=== PATIENT | female | born 1945 | race African-American/Black ===

== ENCOUNTER 2022-12-03 10:47 | Outpatient (CLI) | payer OTHER, MEDICAID | END 2022-12-03 10:48 | disposition home or self-care (01) | LOC: BICCT 10:47 | PROVIDERS: ATTEND Obstetrics & Gynecology | DX: Z12.2 Encounter for screening for malignant neoplasm of respiratory organs (principal); F17.210 Nicotine dependence, cigarettes, uncomplicated | CPT/HCPCS: 71271 ==

== ENCOUNTER 2023-11-22 18:56 | Inpatient (IN) | payer OTHER, MEDICAID ==
[~2023-11-22 18:56] MED LIST: Iopamidol-370 76% 500 ML MDV (1 ML CHARGE) ONE
[2023-11-22 20:17] LABS: #Monocytes 0.4 thou/uL (0.11-0.59); #Neutrophils 1.6 thou/uL (1.40-6.50); %Basophils 0.3 % (0.0-1.0); %Eosinophils 0.6 % (0.0-10.0); %Lymphocytes 39.3 % (21.0-51.0); %Monocytes 11.1 % (0.0-10.0); %Neutrophils 48.1 % (42.0-75.0); Hemoglobin 12.2 g/dL (12.0-16.0); Mean Corpuscular HGB CONC 32.1 g/dL (32.0-36.0); Mean Corpuscular Hemoglobin 30.6 pg (27.0-31.0); Mean Corpuscular Volume 95.2 fl (78.0-98.0); Mean Platelet Volume 10.9 fL (7.4-10.4); Platelet Count 179 10x3/uL (130-400); RBC Distribution Width 12.8 % (11.5-14.5); Red Blood Cell (RBC) Count 3.99 mill/uL (4.20-5.40); White Blood Cell (WBC) Count 3.3 10x3/uL (4.8-10.8)
[2023-11-22 20:43] LABS: Troponin I 0.026 ng/mL (< 0.028)
[2023-11-22 20:47] LABS: ALT (SGPT) 14 U/L (8-55); AST (SGOT) 24 U/L (5-34); Alkaline Phosphatase 59 U/L (40-110); Anion Gap 9 mmol/L (10-20); BUN (Urea Nitrogen) 11 mg/dL (9.8-20.1); Bilirubin, Total 0.3 mg/dL (0.2-1.2); Calc. Creatinine Clearance 0 mL/min (70-130); Calcium 8.8 mg/dL (7.8-10.44); Carbon Dioxide 26 mmol/L (23-31); Chloride 109 mmol/L (98-107); Estimated GFR 79; Globulin 5.2 g/dL (2.4-3.5); Glucose 94 mg/dL (83-110); Lipase 24 U/L (8-78); Potassium 4.1 mmol/L (3.5-5.1); Protein, Total 8.2 g/dL (5.8-8.1); Sodium 140 mmol/L (136-145)
[2023-11-22] MEDS ORDERED: Azithromycin 500 MG VIAL ONE (21:31)
[2023-11-22] MEDS ORDERED: cefTRIAXone (ROCEPHIN) 1 GM VIAL ONE (21:31)
[2023-11-22] MEDS ORDERED: Sodium Chloride 0.9% 100 ML ONE (21:32)
[2023-11-22 21:43] LABS: Bacteria/HPF None Seen HPF (None Seen); Bilirubin Negative (Negative); Blood, Urine Negative (Negative); CAUTI Indications for Culture Fever or rigors; Clarity Clear (Clear); Glucose, Urine (Dipstick) Normal (Negative); Ketone, Urine Negative (Negative); Leukocyte Negative Leu/uL (Negative); Nitrite Negative (Negative); Protein, Urine (Dipstick) 50 mg/dL (Neg-Trace); RBC/HPF 0-3 HPF (0-3); Specific Gravity, Urine 1.025 (1.002-1.036); Squamous Epithelial 0-3 HPF (0-3); WBC/HPF 0-3 HPF (0-3)
[2023-11-22 21:45] LABS: Urine Culture Reflex No No
[2023-11-22] MEDS ORDERED: Furosemide 20 MG (2 mL) VIAL ONE (21:59)
[2023-11-22 22:39] LABS: Actual Bicarbonate (HCO3v) 23.1 mEq/L (22-28); Base Excess -1.6 mEq/L (-2.0 to +3.0); Calcium, Ionized (venous) 1.04 mmol/L (1.16-1.32); Chloride (VBG) 110 mmol/L (98-106); Hematocrit-VBG 38 % (36.0-47.0); Potassium (VBG) 3.77 mmol/L (3.70-5.30); Sodium 141 mmol/L (133-146); pH (venous) 7.389 (7.32-7.43)
[2023-11-22 22:48] LABS: SARS-CoV-2 NAA Rapid Test Not Detected (NotDetected)
[2023-11-23] MEDS ORDERED: Senokot S 8.6-50 MG TAB PO PRN (01:05)
[2023-11-23] MEDS ORDERED: Nicotine 14 MG PATCH TD PRN (01:05)
[2023-11-23 02:10] LABS: Amphetamine Not Detected (NotDetected); Barbiturates Screen Not Detected (NotDetected); Benzodiazepine Screen Not Detected (NotDetected); Cocaine Metabolite Screen Detected (NotDetected); Methadone Not Detected (NotDetected); Methamphetamine Not Detected (NotDetected); Opiate Screen Not Detected (NotDetected); Oxycodone Screen Not Detected (NotDetected); Phencyclidine (PCP) Not Detected (NotDetected); THC/Cannabinoid Screen Not Detected (NotDetected); Tricyclic Screen Not Detected (NotDetected)
[2023-11-23 02:15] LABS: Legionella Urinary Ag Negative (Negative)
[2023-11-23] MEDS ORDERED: hydrALAZINE 20 MG/ML VIAL SLOW IVP PRN (02:20)
[2023-11-23 02:37] LABS: Strep pneumo Urine Ag NEGATIVE (NEGATIVE)
[2023-11-23 07:16] LABS: #Monocytes 0.4 thou/uL (0.11-0.59); %Basophils 0.5 % (0.0-1.0); %Lymphocytes 38.2 % (21.0-51.0); %Monocytes 9.5 % (0.0-10.0); Hematocrit 39.6 % (36.0-47.0); Hemoglobin 12.5 g/dL (12.0-16.0); Mean Corpuscular HGB CONC 31.6 g/dL (32.0-36.0); Mean Corpuscular Hemoglobin 30.3 pg (27.0-31.0); Mean Corpuscular Volume 96.1 fl (78.0-98.0); Mean Platelet Volume 11.4 fL (7.4-10.4); Platelet Count 188 10x3/uL (130-400); RBC Distribution Width 12.8 % (11.5-14.5); Red Blood Cell (RBC) Count 4.12 mill/uL (4.20-5.40)
[2023-11-23 07:39] LABS: ALT (SGPT) 17 U/L (8-55); AST (SGOT) 26 U/L (5-34); Alkaline Phosphatase 54 U/L (40-110); Anion Gap 11 mmol/L (10-20); BUN (Urea Nitrogen) 11 mg/dL (9.8-20.1); Bilirubin, Total 0.3 mg/dL (0.2-1.2); Calc. Creatinine Clearance 42 mL/min (70-130); Calcium 8.5 mg/dL (7.8-10.44); Carbon Dioxide 28 mmol/L (23-31); Chloride 106 mmol/L (98-107); Estimated GFR 79; Globulin 5.2 g/dL (2.4-3.5); Glucose 102 mg/dL (83-110); Potassium 3.9 mmol/L (3.5-5.1); Protein, Total 8.2 g/dL (5.8-8.1); Sodium 141 mmol/L (136-145)
[2023-11-23] MEDS: Ferrous Sulfate 325 MG TAB PO SCH (08:29)
[2023-11-23] MEDS: Enoxaparin 30 MG (0.3 mL) SYRINGE SC SCH ×2 (08:31→08:35)
[2023-11-23] MEDS: Pantoprazole 40 MG VIAL IVP SCH (08:31)
[2023-11-23] MEDS ORDERED: Amlodipine 5 MG TAB PO SCH (09:00)
[2023-11-23] MEDS ORDERED: Doxycycline 100 MG CAP PO SCH (09:45)
[2023-11-23] MEDS: Doxycycline 100 MG CAP PO SCH (20:30)
[2023-11-23] MEDS ORDERED: cefTRIAXone\\ROCEPHIN 1 GM in Sodium Chloride 0.9% 100 ML IVPB SCH (21:00)
[2023-11-24 05:49] LABS: #Monocytes 0.5 thou/uL (0.11-0.59); #Neutrophils 1.4 thou/uL (1.40-6.50); %Basophils 0.6 % (0.0-1.0); %Eosinophils 0.6 % (0.0-10.0); %Lymphocytes 43.1 % (21.0-51.0); %Monocytes 14.2 % (0.0-10.0); %Neutrophils 40.9 % (42.0-75.0); Hematocrit 41.7 % (36.0-47.0); Hemoglobin 12.7 g/dL (12.0-16.0); Mean Corpuscular HGB CONC 30.5 g/dL (32.0-36.0); Mean Corpuscular Hemoglobin 29.3 pg (27.0-31.0); Mean Corpuscular Volume 96.3 fl (78.0-98.0); Mean Platelet Volume 11.1 fL (7.4-10.4); Platelet Count 170 10x3/uL (130-400); RBC Distribution Width 12.7 % (11.5-14.5); Red Blood Cell (RBC) Count 4.33 mill/uL (4.20-5.40); White Blood Cell (WBC) Count 3.5 10x3/uL (4.8-10.8)
[2023-11-24 06:21] LABS: ALT (SGPT) 15 U/L (8-55); AST (SGOT) 25 U/L (5-34); Albumin 2.7 g/dL (3.4-4.8); Alkaline Phosphatase 48 U/L (40-110); Anion Gap 13 mmol/L (10-20); BUN (Urea Nitrogen) 16 mg/dL (9.8-20.1); Bilirubin, Total 0.4 mg/dL (0.2-1.2); Calc. Creatinine Clearance 43 mL/min (70-130); Calcium 8.8 mg/dL (7.8-10.44); Carbon Dioxide 26 mmol/L (23-31); Chloride 105 mmol/L (98-107); Estimated GFR 80; Glucose 87 mg/dL (83-110); Potassium 4.5 mmol/L (3.5-5.1); Protein, Total 7.7 g/dL (5.8-8.1); Sodium 139 mmol/L (136-145)
[2023-11-24] MEDS: Lisinopril 5 MG TAB PO SCH ×2 (10:02→20:43)
[2023-11-24] MEDS: Doxycycline 100 MG CAP PO SCH ×2 (10:02→20:43)
[2023-11-24] MEDS: Ferrous Sulfate 325 MG TAB PO SCH (10:03)
[2023-11-24] MEDS: Carvedilol 3.125 MG TAB PO SCH ×2 (10:03→18:22)
[2023-11-24] MEDS: Enoxaparin 30 MG (0.3 mL) SYRINGE SC SCH (10:04)
[2023-11-24] MEDS: Pantoprazole 40 MG VIAL IVP SCH (10:05)
[2023-11-25 06:03] LABS: #Monocytes 0.4 thou/uL (0.11-0.59); #Neutrophils 1.6 thou/uL (1.40-6.50); %Basophils 0.3 % (0.0-1.0); %Eosinophils 1.1 % (0.0-10.0); %Lymphocytes 43.3 % (21.0-51.0); %Monocytes 11.2 % (0.0-10.0); %Neutrophils 43.3 % (42.0-75.0); Hematocrit 38.1 % (36.0-47.0); Hemoglobin 12.1 g/dL (12.0-16.0); Mean Corpuscular HGB CONC 31.8 g/dL (32.0-36.0); Mean Corpuscular Hemoglobin 30.3 pg (27.0-31.0); Mean Corpuscular Volume 95.3 fl (78.0-98.0); Mean Platelet Volume 11.3 fL (7.4-10.4); Platelet Count 180 10x3/uL (130-400); RBC Distribution Width 12.6 % (11.5-14.5); White Blood Cell (WBC) Count 3.6 10x3/uL (4.8-10.8)
[2023-11-25 06:28] LABS: ALT (SGPT) 14 U/L (8-55); AST (SGOT) 24 U/L (5-34); Albumin 2.7 g/dL (3.4-4.8); Alkaline Phosphatase 46 U/L (40-110); Anion Gap 8 mmol/L (10-20); BUN (Urea Nitrogen) 25 mg/dL (9.8-20.1); Bilirubin, Total 0.4 mg/dL (0.2-1.2); Calc. Creatinine Clearance 45 mL/min (70-130); Calcium 8.6 mg/dL (7.8-10.44); Carbon Dioxide 29 mmol/L (23-31); Chloride 106 mmol/L (98-107); Estimated GFR 74; Globulin 4.8 g/dL (2.4-3.5); Glucose 86 mg/dL (83-110); Potassium 4.6 mmol/L (3.5-5.1); Protein, Total 7.5 g/dL (5.8-8.1); Sodium 138 mmol/L (136-145)
[2023-11-25] MEDS: Enoxaparin 30 MG (0.3 mL) SYRINGE SC SCH (08:31)
[2023-11-25] MEDS: Ferrous Sulfate 325 MG TAB PO SCH (08:32)
[2023-11-25] MEDS: Lisinopril 5 MG TAB PO SCH ×2 (08:32→22:11)
[2023-11-25] MEDS: Carvedilol 3.125 MG TAB PO SCH (08:32)
[2023-11-25] MEDS: Pantoprazole 40 MG VIAL IVP SCH (08:32)
[2023-11-25] MEDS: Doxycycline 100 MG CAP PO SCH (08:32)
[2023-11-25] MEDS: Polyethylene Glycol 3350 17 GM Packet PO SCH (08:33)
[2023-11-25] MEDS ORDERED: Carvedilol 6.25 MG TAB PO SCH ×2 (08:45→17:00)
[2023-11-25] MEDS: Empagliflozin 10 MG TAB PO SCH (09:14)
[2023-11-25 13:35] VITALS: BMI 17.9
[2023-11-26 05:54] LABS: #Monocytes 0.4 thou/uL (0.11-0.59); #Neutrophils 1.6 thou/uL (1.40-6.50); %Basophils 0.3 % (0.0-1.0); %Eosinophils 1.1 % (0.0-10.0); %Lymphocytes 43.3 % (21.0-51.0); %Monocytes 10.9 % (0.0-10.0); %Neutrophils 43.8 % (42.0-75.0); Hematocrit 38.5 % (36.0-47.0); Mean Corpuscular HGB CONC 31.2 g/dL (32.0-36.0); Mean Corpuscular Hemoglobin 30.2 pg (27.0-31.0); Mean Corpuscular Volume 96.7 fl (78.0-98.0); Platelet Count 189 10x3/uL (130-400); RBC Distribution Width 12.7 % (11.5-14.5); Red Blood Cell (RBC) Count 3.98 mill/uL (4.20-5.40); White Blood Cell (WBC) Count 3.6 10x3/uL (4.8-10.8)
[2023-11-26 06:50] LABS: ALT (SGPT) 17 U/L (8-55); AST (SGOT) 25 U/L (5-34); Albumin 2.8 g/dL (3.4-4.8); Alkaline Phosphatase 48 U/L (40-110); Anion Gap 10 mmol/L (10-20); BUN (Urea Nitrogen) 23 mg/dL (9.8-20.1); Bilirubin, Total 0.3 mg/dL (0.2-1.2); Calc. Creatinine Clearance 43 mL/min (70-130); Calcium 8.7 mg/dL (7.8-10.44); Carbon Dioxide 25 mmol/L (23-31); Chloride 109 mmol/L (98-107); Estimated GFR 73; Globulin 5.1 g/dL (2.4-3.5); Glucose 90 mg/dL (83-110); Potassium 4.1 mmol/L (3.5-5.1); Protein, Total 7.9 g/dL (5.8-8.1); Sodium 140 mmol/L (136-145)
[2023-11-26] MEDS: Lisinopril 5 MG TAB PO SCH ×2 (08:33→20:13)
[2023-11-26] MEDS: Ferrous Sulfate 325 MG TAB PO SCH (08:33)
[2023-11-26] MEDS: Empagliflozin 10 MG TAB PO SCH (08:34)
[2023-11-26] MEDS: Spironolactone 25 MG TAB PO SCH (08:34)
[2023-11-26] MEDS: Carvedilol 6.25 MG TAB PO SCH ×2 (08:34→17:16)
[2023-11-26] MEDS: Enoxaparin 40 MG (0.4 mL) SYRINGE SC SCH (08:35)
[2023-11-26] MEDS: Polyethylene Glycol 3350 17 GM Packet PO SCH (08:35)
[2023-11-27 06:30] LABS: #Monocytes 0.5 thou/uL (0.11-0.59); #Neutrophils 1.7 thou/uL (1.40-6.50); %Basophils 0.3 % (0.0-1.0); %Eosinophils 1.1 % (0.0-10.0); %Lymphocytes 38.1 % (21.0-51.0); %Monocytes 13.4 % (0.0-10.0); Hematocrit 38.3 % (36.0-47.0); Hemoglobin 11.9 g/dL (12.0-16.0); Mean Corpuscular HGB CONC 31.1 g/dL (32.0-36.0); Mean Corpuscular Hemoglobin 30.4 pg (27.0-31.0); Mean Platelet Volume 11.7 fL (7.4-10.4); Platelet Count 178 10x3/uL (130-400); RBC Distribution Width 12.8 % (11.5-14.5); Red Blood Cell (RBC) Count 3.91 mill/uL (4.20-5.40); White Blood Cell (WBC) Count 3.7 10x3/uL (4.8-10.8)
[2023-11-27 07:00] LABS: ALT (SGPT) 20 U/L (8-55); AST (SGOT) 29 U/L (5-34); Albumin 2.8 g/dL (3.4-4.8); Alkaline Phosphatase 44 U/L (40-110); Anion Gap 11 mmol/L (10-20); BUN (Urea Nitrogen) 25 mg/dL (9.8-20.1); Bilirubin, Total 0.4 mg/dL (0.2-1.2); Calc. Creatinine Clearance 36 mL/min (70-130); Calcium 8.8 mg/dL (7.8-10.44); Carbon Dioxide 27 mmol/L (23-31); Chloride 107 mmol/L (98-107); Estimated GFR 59; Glucose 89 mg/dL (83-110); Potassium 4.7 mmol/L (3.5-5.1); Protein, Total 7.8 g/dL (5.8-8.1); Sodium 140 mmol/L (136-145)
[2023-11-27] MEDS: Carvedilol 6.25 MG TAB PO SCH (10:16)
[2023-11-27] MEDS: Ferrous Sulfate 325 MG TAB PO SCH (10:17)
[2023-11-27] MEDS: Spironolactone 25 MG TAB PO SCH (10:17)
[2023-11-27] MEDS: Empagliflozin 10 MG TAB PO SCH (10:18)
[2023-11-27] MEDS: Enoxaparin 40 MG (0.4 mL) SYRINGE SC SCH (10:19)
[2023-11-27] MEDS: Lisinopril 5 MG TAB PO SCH (10:19)
[2023-11-27] MEDS: Polyethylene Glycol 3350 17 GM Packet PO SCH (10:22)
[2023-11-27 11:54] VITALS: BP 153/68; TEMP 97.6
== END 2023-11-27 14:51 | disposition home health service (06) | DRG 193 ==
LOC: ERS 18:56 → CCU 23:25 → 2NO 11-23 17:09
PROVIDERS: ADMIT Family Medicine; ATTEND Family Medicine
PROC: 4A043R1 Measurement of Venous Saturation, Peripheral, Percutaneous Approach (ICD-10-PCS; principal; 2023-11-22)
DX: J18.9 Pneumonia, unspecified organism (principal); E43 Unspecified severe protein-calorie malnutrition; J96.01 Acute respiratory failure with hypoxia; I50.23 Acute on chronic systolic (congestive) heart failure; R64 Cachexia; Z68.1 Body mass index [BMI] 19.9 or less, adult; I42.9 Cardiomyopathy, unspecified; I11.0 Hypertensive heart disease with heart failure; D50.9 Iron deficiency anemia, unspecified; F14.10 Cocaine abuse, uncomplicated; F17.210 Nicotine dependence, cigarettes, uncomplicated; Z83.3 Family history of diabetes mellitus; Z71.51 Drug abuse counseling and surveillance of drug abuser; Z71.6 Tobacco abuse counseling; Z90.49 Acquired absence of other specified parts of digestive tract; Z90.710 Acquired absence of both cervix and uterus; Z11.52 Encounter for screening for COVID-19
CPT/HCPCS: 36415; 71045; 74177; 80053; 80306; 81001; 82805; 83605; 83690; 83735; 83880; 84145; 84484; 85025; 87040; 87086; 87449; 87899; 93005; 93306; 94660; 96365; 96366; 96375; C9113; J0456; J0696; J1650; J1940; J3490; Q9967

== ENCOUNTER 2024-04-06 05:52 | Day surgery (SDC) | payer OTHER, MEDICAID ==
[2024-04-05 11:08] VITALS: BMI 16.2
[2024-04-06] MEDS ORDERED: Heparin 10,000 UNITS/ 10 ML VIAL ONE (06:49)
[2024-04-06] MEDS ORDERED: Nitroglycerin 50 MG/250 ML BOT 0 ML ONE (06:49)
[2024-04-06 06:54] LABS: Anion Gap 11 mmol/L (10-20); BUN (Urea Nitrogen) 28 mg/dL (9.8-20.1); Calc. Creatinine Clearance 41 mL/min (70-130); Calcium 8.8 mg/dL (7.8-10.44); Carbon Dioxide 21 mmol/L (23-31); Chloride 113 mmol/L (98-107); Estimated GFR 75; Glucose 92 mg/dL (83-110); Potassium 3.8 mmol/L (3.5-5.1); Sodium 141 mmol/L (136-145)
[2024-04-06 06:57] LABS: ALT (SGPT) 35 U/L (8-55); AST (SGOT) 34 U/L (5-34); Albumin 3.1 g/dL (3.4-4.8); Alkaline Phosphatase 41 U/L (40-110); Bilirubin, Direct 0.1 mg/dL (0.1-0.3); Bilirubin, Total 0.3 mg/dL (0.2-1.2); Protein, Total 8.5 g/dL (5.8-8.1)
[2024-04-06] MEDS ORDERED: Midazolam HCl 2 mg/2 ml Vial ONE (07:19)
[2024-04-06] MEDS ORDERED: fentaNYL 50 mcg/mL 1 mL Vial ONE (07:19)
[2024-04-06 08:11] LABS: #Basophils Less than 0.03 10x3/uL (0.0-0.2); %Basophils 0.3 % (0.0-1.0); %Eosinophils 3.7 % (0.0-10.0); %Lymphocytes 38.1 % (21.0-51.0); %Monocytes 13.6 % (0.0-10.0); %Neutrophils 43.8 % (42.0-75.0); Hematocrit 47.7 % (36.0-47.0); Hemoglobin 15.6 g/dL (12.0-16.0); Mean Corpuscular HGB CONC 32.7 g/dL (32.0-36.0); Mean Corpuscular Hemoglobin 30.5 pg (27.0-31.0); Mean Corpuscular Volume 93.3 fL (78.0-98.0); Mean Platelet Volume 12.1 fL (7.4-10.4); Platelet Count 101 10x3/uL (130-400); RBC Distribution Width 12.8 % (11.5-14.5); Red Blood Cell (RBC) Count 5.11 mill/uL (4.20-5.40)
[2024-04-06 09:15] LABS: Platelet Adequacy Comment Platelets Decreased; RBC Morphology Within Normal Limits
[2024-04-06] MEDS ORDERED: Iopamidol 370 76% 100 ML VIAL ONE (11:23)
== END 2024-04-06 13:30 | disposition home or self-care (01) ==
LOC: SDC 05:52
PROVIDERS: ATTEND Internal Medicine Cardiovascular Disease
PROC: 4A023N7 Measurement of Cardiac Sampling and Pressure, Left Heart, Percutaneous Approach (ICD-10-PCS; principal; 2024-04-06)
DX: I11.0 Hypertensive heart disease with heart failure (principal); I50.20 Unspecified systolic (congestive) heart failure; I42.9 Cardiomyopathy, unspecified; R64 Cachexia; D50.9 Iron deficiency anemia, unspecified; F10.10 Alcohol abuse, uncomplicated; F14.10 Cocaine abuse, uncomplicated; Z79.82 Long term (current) use of aspirin; Z79.899 Other long term (current) drug therapy; Z90.710 Acquired absence of both cervix and uterus; F17.210 Nicotine dependence, cigarettes, uncomplicated
CPT/HCPCS: 80048; 80076; 85025; 93458; C1769 ×2; J2250; J3010; 36415; 99152; J1644; Q9967